=== PATIENT | male | born 1995 | race Caucasian/White ===

== ENCOUNTER 2024-04-29 11:39 | Emergency (ER) | payer SELFPAY ==
[~2024-04-29] VITALS: Ht 182.9 cm; Wt 81.6 kg
[2024-04-29] VITALS (10 sets, daily range): BP systolic 108–123; BP diastolic 46–72
[~2024-04-29 11:39] MED LIST: AMOXICILLIN500 MG PO; CHERATUSSIN OR; FLEXERIL5 M1 PO; NO
[2024-04-29 12:28] LABS: BASO% 0.1 % (0-3); HEMOGLOBIN 14.6 g/dl (14.0-18.0); IMMATURE GRANULOCYTES 0.2 % (0.0-5.0); LYMPH% 17.4 % (15-41); MEAN CELL VOLUME 89.4 fL CALC (80.0-100.0); MEAN CORPUSCULAR HGB 29.7 pG CALC (26.0-32.0); MEAN CORPUSCULAR HGB CONC 33.2 g/dL CAL (32.0-36.0); MONO% 11.2 % (2-13); NEUT# 7.17 thou/uL (1.82-7.42); NEUT% 70.1 % (42-76); RED BLOOD COUNT 4.92 mill/uL (4.70-6.10); RED CELL DISTRI WIDTH 12.5 % (11.5-15.5)
[2024-04-29 12:44] LABS: CREATININE 0.7 mg/dL (0.7-1.3); POTASSIUM 4.8 mmol/l (3.5-5.1)
[2024-04-29] MEDS ORDERED: cefTRIAXone SODIUM 2 GM in SODIUM CHLORIDE 0.9% 100 ML IV ONE (13:25)
[2024-04-29] MEDS ORDERED: CEPHALEXIN500 M1 PO (13:25)
== END 2024-04-29 14:05 | disposition home or self-care (01) | DRG 603 ==
LOC: ED 11:39
PROVIDERS: Family Medicine
PROC: 0S9D3ZZ Drainage of Left Knee Joint, Percutaneous Approach (ICD-10-PCS; principal; 2024-04-29)
DX: L03.116 Cellulitis of left lower limb (principal)
CPT/HCPCS: J0696